=== PATIENT | male | born 1975 | race Caucasian/White ===

== ENCOUNTER 2016-07-11 19:05 | Emergency (ER) | payer MEDICARE ==
[~2016-07-11 19:05] MED LIST: COREG6.25 MG PO; COZAAR25 MG PO; DILAUDID4 MG PO; FUROSEMIDE20 MG PO; HYDROCODONE-APA1 TAB PO; LIPITOR10 MG PO; PLAVIX75 MG PO
== END 2016-07-11 20:28 | disposition home or self-care (01) ==
LOC: D.ER 19:05
DX: H92.01 Otalgia, right ear (principal); H65.91 Unspecified nonsuppurative otitis media, right ear; I50.9 Heart failure, unspecified; G89.29 Other chronic pain; M50.30 Other cervical disc degeneration, unspecified cervical region; F17.200 Nicotine dependence, unspecified, uncomplicated

== ENCOUNTER 2016-08-06 09:56 | Emergency (ER) | payer MEDICARE | END 2016-08-06 10:48 | disposition home or self-care (01) | LOC: D.ER 09:56 | DX: M62.838 Other muscle spasm (principal) ==

== ENCOUNTER 2016-09-15 20:05 | Emergency (ER) | payer MEDICARE | END 2016-09-15 22:00 | disposition left against medical advice (07) | LOC: D.ER 20:05 | DX: G89.18 Other acute postprocedural pain (principal) ==

== ENCOUNTER 2016-09-16 22:43 | Emergency (ER) | payer MEDICARE ==
[2016-09-17 00:13] LABS: BASOPHILS 0 % (0-2); EOSINOPHILS 0.9 % (0-7); HEMOGLOBIN 15.4 g/dL (13.5-17.5); IMMATURE GRANULOCYTES 0.6 % (0-5); LYMPHOCYTES 23.4 % (15-50); MCH 30.4 pg (26.0-34.0); MCHC 33.5 g/dL (31.0-37.0); MCV 90.9 fL (80.0-100.0); MONOCYTES 8.7 % (2-11); NEUTROPHILS 66.4 % (40-80); PLATELET COUNT 287 10x3/uL (130-400); RBC 5.06 10x6/uL (4.20-6.10); RDW 12.4 % (11.5-14.5); WBC 20.4 10x3/uL (4.8-10.8)
[2016-09-17 00:32] LABS: ALBUMIN 3.8 g/dL (3.4-5.0); ALKALINE PHOSPHATASE 75 U/L (46-116); ALT (SGPT) 146 U/L (10-68); BILIRUBIN - TOTAL 0.31 mg/dL (0.2-1.3); CALC OSMOLALITY 290 mosm/kg (275-300); CALCIUM 9.6 mg/dL (8.5-10.1); CARBON DIOXIDE 29.6 mmol/L (21.0-32.0); CHLORIDE - SERUM 107 mmol/L (98-107); CREATININE - SERUM 0.8 mg/dL (0.6-1.3); GLUCOSE 103 mg/dL (74-106); POTASSIUM - SERUM 3.6 mmol/L (3.5-5.1); SODIUM 146 mmol/L (136-145); UREA NITROGEN 12 mg/dL (7-18); eGFR NON AFRICAN AMERICAN > 90 mL/min (90-120)
== END 2016-09-17 01:53 | disposition home or self-care (01) ==
LOC: D.ER 22:43
PROVIDERS: Emergency Medicine
DX: G89.18 Other acute postprocedural pain (principal); I50.9 Heart failure, unspecified; M50.30 Other cervical disc degeneration, unspecified cervical region

== ENCOUNTER 2016-09-20 08:22 | Emergency (ER) | payer MEDICARE | END 2016-09-20 09:35 | disposition home or self-care (01) | LOC: D.ER 08:22 | DX: M54.2 Cervicalgia (principal); I50.9 Heart failure, unspecified; M50.30 Other cervical disc degeneration, unspecified cervical region; F17.200 Nicotine dependence, unspecified, uncomplicated ==

== ENCOUNTER 2017-03-07 10:19 | Emergency (ER) | payer MEDICARE | END 2017-03-07 12:50 | disposition home or self-care (01) | LOC: D.ER 10:19 | DX: M54.5 Low back pain (principal); Z91.81 History of falling ==

== ENCOUNTER 2017-04-10 11:24 | Emergency (ER) | payer MEDICARE | END 2017-04-10 12:55 | disposition home or self-care (01) | LOC: D.ER 11:24 | DX: M62.838 Other muscle spasm (principal); M50.30 Other cervical disc degeneration, unspecified cervical region; S16.1XXA Strain of muscle, fascia and tendon at neck level, initial encounter; X58.XXXA Exposure to other specified factors, initial encounter; Y93.89 Activity, other specified; Y92.029 Unspecified place in mobile home as the place of occurrence of the external cause; R51 Headache; F17.200 Nicotine dependence, unspecified, uncomplicated ==

== ENCOUNTER → 2017-05-02 12:30 | Outpatient (CLI) | payer MEDICARE | END | disposition home or self-care (01) | LOC: D.CT 12:30 | DX: M25.511 Pain in right shoulder (principal) ==

== ENCOUNTER 2017-05-02 12:58 | Emergency (ER) | payer MEDICARE | END 2017-05-02 15:22 | disposition home or self-care (01) | LOC: D.ER 12:58 | DX: R33.9 Retention of urine, unspecified (principal); I10 Essential (primary) hypertension; Z95.0 Presence of cardiac pacemaker; I50.9 Heart failure, unspecified ==

== ENCOUNTER 2017-05-23 10:15 | Emergency (ER) | payer MEDICARE | END 2017-05-23 11:38 | disposition home or self-care (01) | LOC: D.ER 10:15 | DX: M25.511 Pain in right shoulder (principal); I50.9 Heart failure, unspecified; I10 Essential (primary) hypertension ==

== ENCOUNTER 2017-07-11 13:18 | Emergency (ER) | payer MEDICARE | END 2017-07-11 14:53 | disposition home or self-care (01) | LOC: D.ER 13:18 | DX: M54.5 Low back pain (principal); M62.838 Other muscle spasm; M54.30 Sciatica, unspecified side; I50.9 Heart failure, unspecified; I10 Essential (primary) hypertension; Z95.0 Presence of cardiac pacemaker ==

== ENCOUNTER 2017-10-17 08:00 | Emergency (ER) | payer MEDICARE, MEDICAID | END 2017-10-17 08:58 | disposition home or self-care (01) | LOC: D.ER 08:00 | DX: M54.5 Low back pain (principal); G89.29 Other chronic pain; I50.9 Heart failure, unspecified; I10 Essential (primary) hypertension; Z95.0 Presence of cardiac pacemaker ==

== ENCOUNTER 2017-12-20 11:21 | Emergency (ER) | payer MEDICARE, MEDICAID ==
[~2017-12-20] VITALS: Ht 320 cm; Wt 94.5 kg
[2017-12-20 11:29] VITALS: Ht 320 cm; Wt 94.5 kg
[2017-12-20] MEDS ORDERED: WELLBUTRIN XL150 M1 PO (11:32)
[2017-12-20 13:31] VITALS: BP 130/85
== END 2017-12-20 13:32 | disposition home or self-care (01) ==
LOC: D.ER 11:21
DX: S49.91XA Unspecified injury of right shoulder and upper arm, initial encounter (principal); X58.XXXA Exposure to other specified factors, initial encounter; Y93.89 Activity, other specified; Y92.019 Unspecified place in single-family (private) house as the place of occurrence of the external cause; I10 Essential (primary) hypertension; I50.9 Heart failure, unspecified

== ENCOUNTER 2018-02-15 16:42 | Emergency (ER) | payer MEDICARE ==
[~2018-02-15] VITALS: Ht 167.6 cm; Wt 93.6 kg
[~2018-02-15 16:42] MED LIST changes: +WELLBUTRIN XL150 M1 PO
[2018-02-15 16:58] VITALS: Ht 167.6 cm; Wt 93.6 kg
[2018-02-15] MEDS ORDERED: NAPROSYN500 MG PO (18:49)
[2018-02-15] MEDS ORDERED: ULTRAM50 MG PO (18:53)
[2018-02-15 18:59] VITALS: BP 122/59
== END 2018-02-15 19:02 | disposition home or self-care (01) ==
LOC: D.ER 16:42
DX: S43.401A Unspecified sprain of right shoulder joint, initial encounter (principal); X58.XXXA Exposure to other specified factors, initial encounter; Y93.89 Activity, other specified; Y92.013 Bedroom of single-family (private) house as the place of occurrence of the external cause; I11.0 Hypertensive heart disease with heart failure; I50.9 Heart failure, unspecified; Z95.0 Presence of cardiac pacemaker

== ENCOUNTER 2018-07-25 08:23 | Emergency (ER) | payer MEDICARE ==
[~2018-07-25] VITALS: Ht 167.6 cm; Wt 96.2 kg
[~2018-07-25 08:23] MED LIST changes: +NAPROSYN500 MG PO; +ULTRAM50 MG PO
[2018-07-25 08:29] VITALS: BP 134/73; Ht 167.6 cm; Wt 96.2 kg
== END 2018-07-25 09:28 | disposition home or self-care (01) ==
LOC: D.ER 08:23
DX: M54.5 Low back pain (principal); G89.29 Other chronic pain